=== PATIENT | female | born 1995 | race Hispanic/Latino ===

== ENCOUNTER 2019-04-25 09:42 | Outpatient (CLI) | payer OTHER ==
--- NOTE | 2019-04-25 11:08 | ULT ---
Obstetric sonogram HISTORY: evaluation. Cervical length. Second trimester gestation. FINDINGS: Single intrauterine gestation in breech presentation. Cervix is closed and 3.3 cm. Amniotic fluid is within normal limits. Grade 0 placenta is anterior. Single venous suggs along the in ternal inferior margin, 2.0 cm. Three-vessel cord shows a normal insertion. Four-chamber heart motion at 150 bpm. spine and kid neys are intact as visualized. No gross intracranial abnormalities are apparent. Measurements are as follows: Biparietal diameter 19 weeks 6 days Head circumference 20 weeks 0 days Abdominal circumference 21 weeks 0 days Femur length 20 weeks 0 days [place] 41 percentile. Estimated date of delivery based on today's sonogram 09/10/2019. IMPRESSION: Single viable intrauterine gestation. Estimated gestational age 20 weeks 2 days.
== END 2019-04-25 09:43 | disposition home or self-care (01) ==
LOC: BICULT 09:42
PROVIDERS: ATTEND Family Medicine
DX: Z34.02 Encounter for supervision of normal first pregnancy, second trimester (principal); Z3A.20 20 weeks gestation of pregnancy
CPT/HCPCS: 76805

== ENCOUNTER 2019-09-10 12:11 | Outpatient (CLI) | payer OTHER ==
[2019-09-11 12:24] LABS: SARS-CoV-2 MS2 Positive; SARS-CoV-2 N Gene Negative; SARS-CoV-2 S Gene Negative; SARS-CoV-2 orf1ab Negative
== END 2019-09-10 12:12 | disposition home or self-care (01) ==
LOC: LABSCS 12:11
PROVIDERS: ATTEND Family Medicine
DX: Z01.812 Encounter for preprocedural laboratory examination (principal); Z11.59 Encounter for screening for other viral diseases
CPT/HCPCS: 87635; U0003

== ENCOUNTER 2019-09-11 10:58 | Inpatient (IN) | payer OTHER ==
[2019-09-11 11:02] VITALS: BMI 38.0
[2019-09-11] MEDS: Lactated Ringer's 1,000 ML IV SCH ×3 (11:27→15:14)
[2019-09-11] MEDS ORDERED: hydrALAZINE 20 MG/ML VIAL ONE ×2 (11:48→13:07)
[2019-09-11] MEDS ORDERED: Butorphanol Tartrate 1 MG/ML VIAL ONE (11:56)
[2019-09-11] MEDS ORDERED: Diphenoxylate HCl/Atropine Tablet PO PRN (11:58)
[2019-09-11] MEDS ORDERED: HYDROcodone/Acetaminophen 5/325 mg Tablet PO PRN ×3 (11:58→20:13)
[2019-09-11] MEDS ORDERED: Ibuprofen 800 MG TAB PO PRN (11:58)
[2019-09-11] MEDS ORDERED: Carboprost 250 MCG/ML AMP IM PRN (11:58)
[2019-09-11] MEDS ORDERED: Butorphanol Tartrate 1 MG/ML VIAL SLOW IVP PRN (11:58)
[2019-09-11] MEDS ORDERED: Misoprostol 200 MCG TAB PR PRN (11:58)
[2019-09-11] MEDS ORDERED: Promethazine HCl 25 MG/ML VIAL IM PRN ×3 (11:58→20:13)
[2019-09-11] MEDS ORDERED: Lidocaine 1% (PF) 30 ML VIAL SC PRN (11:58)
[2019-09-11] MEDS ORDERED: hydrALAZINE 20 MG/ML VIAL SLOW IVP PRN ×2 (11:58→20:13)
[2019-09-11] MEDS ORDERED: Ondansetron PF 4 MG/2 ML Vial IVP PRN ×3 (11:58→20:13)
[2019-09-11] MEDS ORDERED: NS w/ Oxytocin 10 units 500 ML IV SCH ×2 (12:00)
[2019-09-11] MEDS ORDERED: Fentanyl 4 mcg/Bup 0.1% Cadd 100 ML ONE (12:23)
[2019-09-11 12:43] LABS: Hemoglobin 13.4 g/dL (12.0-16.0); Mean Corpuscular HGB CONC 34.6 g/dL (32.0-36.0); Mean Corpuscular Hemoglobin 36.8 pg (27.0-31.0); Mean Platelet Volume 10.5 fL (7.4-10.4); Platelet Count 178 thou/uL (130-400); RBC Distribution Width 11.6 % (11.5-14.5); Red Blood Cell (RBC) Count 3.65 mill/uL (4.20-5.40); White Blood Cell (WBC) Count 12.1 thou/uL (4.8-10.8)
[2019-09-11 13:08] LABS: HBSAg Index 0.15 S/CO (0-0.99); HIV (1/2) Antibody/Antigen Non-Reactive (NonReactive); HIV 1/2 INDEX 0.23 S/CO (<1.00); Hep B Surf Ag Non-Reactive S/CO (NonReactive)
[2019-09-11] MEDS ORDERED: Naloxone HCl 0.4 mg/ml Vial IVP PRN ×2 (13:27)
[2019-09-11] MEDS ORDERED: EPHEDRINE 25 MG/5 ML SYRINGE SLOW IVP PRN (13:27)
[2019-09-11] MEDS ORDERED: Lactated Ringer's 500 ML IV PRN (13:27)
[2019-09-11] MEDS ORDERED: Acetaminophen 325 MG TAB PO PRN (13:27)
[2019-09-11] MEDS ORDERED: diphenhydrAMINE 50 MG/ML VIAL IVP PRN (13:27)
[2019-09-11] MEDS ORDERED: Fentanyl 4 mcg/Bupivacaine 0.1% Cassette 100 ML EPIDURAL SCH (13:30)
[2019-09-11] MEDS ORDERED: Communication Order-Pharmacy FS SCH (13:30)
[2019-09-11 13:35] LABS: ALT (SGPT) 23 U/L (8-55); AST (SGOT) 24 U/L (5-34); Albumin 3.1 g/dL (3.5-5.0); Alkaline Phosphatase 230 U/L (40-110); Anion Gap 17 mmol/L (10-20); BUN (Urea Nitrogen) 10 mg/dL (7.0-18.7); Bilirubin, Total 0.4 mg/dL (0.2-1.2); Calc. Creatinine Clearance 229 mL/min (70-130); Carbon Dioxide 18 mmol/L (22-29); Chloride 104 mmol/L (98-107); Estimated GFR-MDRD Greater than 90; Globulin 2.9 g/dL (2.4-3.5); Glucose 70 mg/dL (70-105); Potassium 4.4 mmol/L (3.5-5.1); Sodium 135 mmol/L (136-145)
[2019-09-11] MEDS ORDERED: NS / Oxytocin 40 units/1000ml 1,000 ML ONE (13:53)
[2019-09-11] MEDS ORDERED: Lidocaine 1% (PF) 30 ML VIAL ONE (13:53)
[2019-09-11] MEDS: NS / Oxytocin 40 units/1000ml 1,000 ML IV PRN ×2 (16:53→19:55)
[2019-09-11] MEDS ORDERED: Bisacodyl 10 MG SUPP PR PRN (20:13)
[2019-09-11] MEDS ORDERED: Milk Of Magnesia 30 ML UDCUP PO PRN (20:13)
[2019-09-11] MEDS ORDERED: diphenhydrAMINE 25 MG CAP PO PRN (20:13)
[2019-09-11] MEDS ORDERED: Benzocaine-Menthol 82.5 ML CAN TOP PRN (20:13)
[2019-09-11] MEDS ORDERED: Preparation H Ointment 28 GM TUBE PR PRN (20:13)
[2019-09-11] MEDS ORDERED: NS / Oxytocin 40 units/1000ml 1,000 ML IV SCH (20:13)
[2019-09-11] MEDS ORDERED: Lanolin Ointment 7 GM TUBE TOP PRN (20:13)
[2019-09-11] MEDS: Ibuprofen 800 MG TAB PO SCH (22:16)
[2019-09-11] MEDS: Docusate Calcium (SURFAK) 240 MG CAP PO SCH (22:16)
[2019-09-12 01:02] LABS: Syphilis Antibody Nonreactive (Nonreactive); Syphilis Antibody Index 0.04 S/CO (<1.00 Non-Reactive)
[2019-09-12] MEDS: Ibuprofen 800 MG TAB PO SCH ×3 (06:03→21:27)
[2019-09-12 06:28] LABS: Hemoglobin 11.6 g/dL (12.0-16.0); Mean Corpuscular HGB CONC 33.5 g/dL (32.0-36.0); Mean Corpuscular Hemoglobin 36.7 pg (27.0-31.0); Platelet Count 171 thou/uL (130-400); RBC Distribution Width 11.6 % (11.5-14.5); Red Blood Cell (RBC) Count 3.15 mill/uL (4.20-5.40); White Blood Cell (WBC) Count 10.8 thou/uL (4.8-10.8)
[2019-09-12] MEDS ORDERED: HYDROcodone/Acetaminophen 5/325 mg Tablet PO PRN (07:12)
[2019-09-12] MEDS: Docusate Calcium (SURFAK) 240 MG CAP PO SCH ×2 (08:09→21:27)
[2019-09-12] MEDS: Prenatal Vitamin 1 TAB PO SCH (08:09)
[2019-09-12] MEDS ORDERED: Adacel (T-DAP) 0.5 ML SYRINGE IM ONE (09:00)
[2019-09-12] MEDS: Ferrous Sulfate 325 MG TAB PO SCH ×2 (10:44→18:28)
[2019-09-12] MEDS ORDERED: cloNIDine 0.1 MG TAB PO PRN (16:57)
[2019-09-13] MEDS: Ibuprofen 800 MG TAB PO SCH ×2 (05:57→14:10)
[2019-09-13 08:08] VITALS: BP 125/79; TEMP 98.2
[2019-09-13] MEDS: Ferrous Sulfate 325 MG TAB PO SCH (08:59)
[2019-09-13] MEDS: Docusate Calcium (SURFAK) 240 MG CAP PO SCH (09:00)
[2019-09-13] MEDS: Prenatal Vitamin 1 TAB PO SCH (09:00)
== END 2019-09-13 16:40 | disposition home or self-care (01) | DRG 807 ==
LOC: L&D/OP 10:58 → L&D 13:26 → 3SE 21:26
PROVIDERS: ADMIT Family Medicine; ATTEND Family Medicine
PROC: 10E0XZZ Delivery of Products of Conception, External Approach (ICD-10-PCS; principal; 2019-09-11)
PROC: 0W8NXZZ Division of Female Perineum, External Approach (ICD-10-PCS; 2019-09-11)
DX: O13.4 Gestational [pregnancy-induced] hypertension without significant proteinuria, complicating childbirth (principal); Z37.0 Single live birth; O64.0XX0 Obstructed labor due to incomplete rotation of fetal head, not applicable or unspecified; Z3A.40 40 weeks gestation of pregnancy
CPT/HCPCS: 36415; 80053; 85027; 86780; 86850; 86900; 86901; 87340; 87389; 87635; J0360; J0595; J2001; U0003